=== PATIENT | male | born 1975 | race Caucasian/White ===

== ENCOUNTER 2024-02-08 23:50 | Observation (INO) ==
[2024-02-09] MEDS: LORazepam 1 MG/1 ML SYR ED Inj Use IV STA ×3 (00:15→04:25)
[2024-02-09] MEDS: SODIUM CHLORIDE 0.9% 1,000 ML IV SCH ×2 (00:15→04:24)
[2024-02-09 00:21] LABS: Basophils # (auto) 0.07 K/uL (0.00-0.20); Basophils % (auto) 0.5 %; Eosinophils # (auto) 0.06 K/uL (0.00-0.50); Eosinophils % (auto) 0.4 %; Hematocrit (blood only) 40.7 % (42.0-52.0); Hemoglobin 14.3 g/dl (14.0-18.0); Immature Granulocytes # (auto) 0.05 K/uL (0.01-0.20); Immature Granulocytes % (auto) 0.3 %; Lymphocytes # (auto) 1.17 K/uL (1.20-3.40); Lymphocytes % (auto) 7.7 %; Mean Corpuscular Hemoglobin 36.7 pg (25.0-34.0); Mean Corpuscular Hgb Conc 35.1 g/dL (32.0-36.0); Mean Corpuscular Volume 104.4 fL (80.0-100.0); Mean Platelet Volume 9.3 fL (9.4-12.4); Monocytes # (auto) 1.11 K/uL (0.11-0.59); Monocytes % (auto) 7.3 %; Neutrophils # (auto) 12.74 K/uL (1.40-6.50); Neutrophils % (auto) 83.8 %; Platelet Count 380 K/uL (130-400); RDW Coefficient of Variation 12.3 % (11.5-14.5); RDW Standard Deviation 47.8 fL (36.4-46.3)
[2024-02-09 00:37] LABS: Albumin Globulin Ratio 1.7 (0.9-2); Albumin Level 4.2 gm/dl (3.4-5.0); BUN Creatinine Ratio 14.3 (10-20); Bilirubin,Total 0.7 mg/dl (0.2-1.0); Calcium 8.8 mg/dl (8.6-10.3); Creatinine Clr Calc Pharmacy 80.4 ml/min; Est GFR (African American) 96.8 ml/min; Est GFR (Non-African American) 83.5 ml/min; Globulin 2.5 gm/dl (2.5-4.0); Magnesium 1.9 mg/dl (1.7-2.4); Potassium 4.6 mmol/L (3.5-5.1); Total Protein 6.7 gm/dl (6.0-8.3)
[2024-02-09 00:43] LABS: Troponin I High Sensitivity 7.7 pg/ml (0-20)
[2024-02-09 01:20] LABS: Adenovirus PCR Not Detected (NotDetected); Bordetella parapertussis PCR Not Detected (NotDetected); Bordetella pertussis PCR Not Detected (NotDetected); Chlamydia pneumoniae PCR Not Detected (NotDetected); Coronavirus 229E PCR Not Detected (NotDetected); Coronavirus CoV-2 (COVID19)PCR Not Detected (NotDetected); Coronavirus HKU1 PCR Not Detected (NotDetected); Coronavirus NL63 PCR Not Detected (NotDetected); Coronavirus OC43PCR Not Detected (NotDetected); Human Metapneumovirus PCR Not Detected (NotDetected); Influenza A PCR Not Detected (NotDetected); Influenza B PCR Not Detected (NotDetected); Mycoplasma pneumoniae PCR Not Detected (NotDetected); Parainfluenza Virus 1 PCR Not Detected (NotDetected); Parainfluenza Virus 2 PCR Not Detected (NotDetected); Parainfluenza Virus 3 PCR Not Detected (NotDetected); Parainfluenza Virus 4 PCR Not Detected (NotDetected); Respiratory Syncytial VirusPCR Not Detected (NotDetected); Rhinovirus/Enterovirus PCR Not Detected (NotDetected)
[2024-02-09 01:25] LABS: Acetaminophen < 3 ug/ml (10-30); Salicylate < 3.0 mg/dl (3.0-30)
--- NOTE | 2024-02-09 01:48 | Emergency Department Note ---
History of Present Illness General Chief complaint: Illness Stated complaint: Anxiety, Chills Time Seen by Provider: 02/08/24 23:54 History of Present Illness This is a 48-year-old male presenting to the emergency department for evaluation of shaking and possible seizure. The patient does not live in this area, but is visiting family locally. He states that he was at his parents house and just started shaking. He is not warm or cold. He is worried that he may have a seizure as he did have a febrile seizure as a young child. He has never had another seizure, and does not take any prescription medicine. Patient denies alcohol use. Additional history is provided by the patient's , who states that patient took an unknown amount of Suboxone and Kratom tonight to get high. Home Medications Medication Instructions Recorded Confirmed Type Escitalopram (Lexapro) 10 mg PO DAILY ##30 10/21/08 Rx Lorazepam (Ativan *) 1 mg PO Q6HR PRN ##20 10/21/08 Rx None (Patient States No Home Meds) ##0 10/21/08 History Allergies Allergy/AdvReac Type Severity Reaction Status Date / Time No Known Allergies Allergy NONE Unverified 10/21/08 11:28 Past Med/Surg History Problem List (Updated 02/09/24 @ 06:05 by Roby Baca MD) Altered mental status Tachycardia Tremulousness Opiate or related narcotic overdose Intoxication with opioids Drug overdose, multiple drugs Medical History (Updated 02/09/24 @ 06:05 by Roby Baca MD) Drug abuse Social History Smoking Status: Current every day smoker Tobacco Type: Cigarettes Do You Dip or Chew Tobacco: No; Hx Alcohol Use: No Hx Substance Use: Yes Last Used Substance: Just Prior to Arrival Substance Use Type Other:: Kratum, Suboxone Preferred Language: Yoruba Fund Development Manager Required: No Beliefs That Will Affect Care: None Current Living Situation: Spouse Other Information That Helps Us Care for You: No Feels Safe at Home: Yes Safety Concerns: Feels Safe At This Time Assistive Devices: None Review of Systems A total of 10 systems reviewed and were otherwise negative Physical Exam Vital Signs Vital Signs - 24 hr 02/08/24 23:56 02/08/24 23:57 02/08/24 23:58 Temperature 37.0 C Temperature Source Oral Pulse Rate 113 H 116 H 117 H Pulse Rate [Right] Pulse Rate from SpO2 Sensor Pulse Rhythm [Right] Pulse Strength [Right] Respiratory Rate 20 26 H Respiratory Effort / Characteristics Non-Labored Spontaneous Respiratory Depth Normal Blood Pressure 116/91 116/91 Blood Pressure [Right Arm] Blood Pressure Mean 98 99 Blood Pressure Mean [Right Arm] Blood Pressure Position Lying Blood Pressure Position [Right Arm] Pulse Oximetry 97 96 Oxygen Delivery Method Room Air Room Air Sepsis Recent Fever Within 48 Hours Yes Sepsis New/Unexplained Change in Mental Status N/A Sepsis Action Taken by Nursing Physician Notified 02/09/24 00:01 02/09/24 00:30 02/09/24 01:00 Temperature Temperature Source Pulse Rate 118 H 112 H 116 H Pulse Rate [Right] Pulse Rate from SpO2 Sensor Pulse Rhythm [Right] Pulse Strength [Right] Respiratory Rate 20 20 19 Respiratory Effort / Characteristics Respiratory Depth Blood Pressure 110/79 105/77 Blood Pressure [Right Arm] Blood Pressure Mean 89 86 Blood Pressure Mean [Right Arm] Blood Pressure Position Blood Pressure Position [Right Arm] Pulse Oximetry 96 96 97 Oxygen Delivery Method Room Air Room Air Room Air Sepsis Recent Fever Within 48 Hours Sepsis New/Unexplained Change in Mental Status Sepsis Action Taken by Nursing 02/09/24 01:00 02/09/24 01:30 02/09/24 02:42 Temperature Temperature Source Pulse Rate 118 H 120 H 114 H Pulse Rate [Right] Pulse Rate from SpO2 Sensor 119 H Pulse Rhythm [Right] Pulse Strength [Right] Respiratory Rate 18 18 17 Respiratory Effort / Characteristics Respiratory Depth Blood Pressure 105/77 118/76 114/63 Blood Pressure [Right Arm] Blood Pressure Mean 87 90 80 Blood Pressure Mean [Right Arm] Blood Pressure Position Blood Pressure Position [Right Arm] Pulse Oximetry 96 97 Oxygen Delivery Method Room Air Room Air Sepsis Recent Fever Within 48 Hours Sepsis New/Unexplained Change in Mental Status Sepsis Action Taken by Nursing 02/09/24 03:00 02/09/24 04:07 02/09/24 04:08 Temperature Temperature Source Pulse Rate 110 H 120 H Pulse Rate [Right] 120 H Pulse Rate from SpO2 Sensor Pulse Rhythm [Right] Regular Pulse Strength [Right] Normal Respiratory Rate 18 30 H Respiratory Effort / Characteristics Non-Labored Spontaneous Respiratory Depth Normal Blood Pressure 115/67 Blood Pressure [Right Arm] 115/91 Blood Pressure Mean 83 Blood Pressure Mean [Right Arm] 99 Blood Pressure Position Blood Pressure Position [Right Arm] Lying Pulse Oximetry 93 97 Oxygen Delivery Method Room Air Room Air Sepsis Recent Fever Within 48 Hours Sepsis New/Unexplained Change in Mental Status Sepsis Action Taken by Nursing VITALS: Vitals are noted on the nurse's note and reviewed by myself. Vital signs stable. GENERAL: White male who is very tremulous on presentation. He answers questions appropriately. He seems to have involuntary movement of the arms and legs HEAD: Normocephalic atraumatic. tent. NECK: Supple without nuchal rigidity. No lymphadenopathy. No thyromegaly. Cervical spine is nontender. HEART: Regular rate and rhythm without murmurs gallops or rubs. LUNGS: Clear to auscultation bilaterally without wheezes, rales or rhonchi. No retractions or accessory muscle use. ABDOMEN: Positive normal bowel sounds x 4. Soft, nontender, without masses or organomegaly. No guarding or rebound tenderness. MUSCULOSKELETAL: No muscle atrophy, erythema, or edema noted. Full range of motion in all extremities. Course Administered Medications Lactated Ringer's (Lr) 1,000 mls @ 125 mls/hr IV .Q8H LILIANA Stop: 02/09/24 21:23 Last Admin: 02/09/24 05:50 Dose: 125 mls/hr Documented By: YASSINE Discontinued Medications Sodium Chloride (Nss) 1,000 mls @ 999 mls/hr IV .Q1H1M LILIANA Stop: 02/09/24 01:15 Last Infusion: 02/09/24 01:26 Dose: Infused Documented By: Admin: 02/09/24 00:15 Dose: 999 mls/hr Documented By: JONAS Sodium Chloride (Nss) 1,000 mls @ 999 mls/hr IV .Q1H1M LILIANA Stop: 02/09/24 05:30 Last Infusion: 02/09/24 05:30 Dose: Infused Documented By: Admin: 02/09/24 04:24 Dose: 999 mls/hr Documented By: MICHAEL Lorazepam 3 mg/ Syringe 3 mls @ 2 mls/min IV ONCE PRN; Protocol PRN Reason: EtOH Withdrawal AWSS Score 10+ Last Admin: 02/09/24 06:10 Dose: 2 mls/min Documented By: YASSINE Lorazepam (Lorazepam 1 Mg/1 Ml Syr Ed Inj Use) 1 mg IV ONE STA Stop: 02/09/24 00:02 Last Admin: 02/09/24 00:15 Dose: 1 mg Documented By: JNOAS Lorazepam (Lorazepam 1 Mg/1 Ml Syr Ed Inj Use) 2 mg IV ONE STA Stop: 02/09/24 02:43 Last Admin: 02/09/24 02:54 Dose: 2 mg Documented By: JONAS Lorazepam (Lorazepam 1 Mg/1 Ml Syr Ed Inj Use) 2 mg IV ONE STA Stop: 02/09/24 04:19 Last Admin: 02/09/24 04:25 Dose: 2 mg Documented By: MICHAEL Medical Decision Making Differential Diagnosis Differential diagnosis: Etiologies such as seizure, drug abuse, alcohol intoxication, toxicological, infection, hypoglycemia, electrolyte abnormalities, cardiac sources, intracerebral event, neurologic, as well as others were entertained. Laboratory Data 02/09/24 00:03 02/09/24 00:03 Lab Results 02/09/24 Range/Units 00:03 WBC 15.20 H (4.8-10.8) K/ul RBC 3.90 L (4.70-6.10) M/uL Hgb 14.3 (14.0-18.0) g/dl Hct 40.7 L (42.0-52.0) % MCV 104.4 H (80.0-100.0) fL MCH 36.7 H (25.0-34.0) pg MCHC 35.1 (32.0-36.0) g/dL RDW Std Deviation 47.8 H (36.4-46.3) fL RDW Coeff of Ziggy 12.3 (11.5-14.5) % Plt Count 380 (130-400) K/uL MPV 9.3 L (9.4-12.4) fL Immature Gran % (Auto) 0.3 % Neut % (Auto) 83.8 % Lymph % (Auto) 7.7 % [place] % (Auto) 7.3 % Eos % (Auto) 0.4 % Baso % (Auto) 0.5 % Neut # (Auto) 12.74 H (1.40-6.50) K/uL Lymph # (Auto) 1.17 L (1.20-3.40) K/uL [place] # (Auto) 1.11 H (0.11-0.59) K/uL Eos # (Auto) 0.06 (0.00-0.50) K/uL Baso # (Auto) 0.07 (0.00-0.20) K/uL Immature Gran # (Auto) 0.05 (0.01-0.20) K/uL Sodium 136 (136-145) mmol/L Potassium 4.6 (3.5-5.1) mmol/L Chloride 103 (98-107) mmol/L Carbon Dioxide 22 (21-32) mmol/L Anion Gap 11 (3-11) BUN 15 (6-23) mg/dl Creatinine 1.05 (0.6-1.4) mg/dl Est Cr Clr Drug Dosing 80.4 ml/min Est GFR ( Amer) 96.8 ml/min Est GFR (Non-Af Amer) 83.5 ml/min BUN/Creatinine Ratio 14.3 (10-20) Glucose 96 (70-99(Fasting)) mg/dl Calcium 8.8 (8.6-10.3) mg/dl Magnesium 1.9 (1.7-2.4) mg/dl Total Bilirubin 0.7 (0.2-1.0) mg/dl AST 22 (13-39) U/L ALT 13 (7-52) U/L Alkaline Phosphatase 100 (34-104) U/L Total Creatine Kinase 113 (30-223) U/L Troponin I High Sens 7.7 (0-20) pg/ml Total Protein 6.7 (6.0-8.3) gm/dl Albumin 4.2 (3.4-5.0) gm/dl Globulin 2.5 (2.5-4.0) gm/dl Albumin/Globulin Ratio 1.7 (0.9-2) Lipase 15 (11-82) U/L Salicylates < 3.0 L (3.0-30) mg/dl Acetaminophen < 3 L (10-30) ug/ml Ethyl Alcohol mg/dL < 10.0 (<10.0) mg/dl Adenovirus (PCR) Not Detected (NotDetected) B. pertussis DNA (PCR) Not Detected (NotDetected) B.parapertussis DNA PCR Not Detected (NotDetected) Lyme Disease Screen Negative (Negative) C. pneumoniae DNA (PCR) Not Detected (NotDetected) Coronavirus OC43 (PCR) Not Detected (NotDetected) Coronavirus HKU1 (PCR) Not Detected (NotDetected) Coronavirus 229E (PCR) Not Detected (NotDetected) SARS-CoV-2 (PCR) Not Detected (NotDetected) Coronavirus NL63 (PCR) Not Detected (NotDetected) Human Metapneumovir PCR Not Detected (NotDetected) Influenza Type A (PCR) Not Detected (NotDetected) Influenza Type B (PCR) Not Detected (NotDetected) M. pneumoniae (PCR) Not Detected (NotDetected) Parainfluenza 1 (PCR) Not Detected (NotDetected) Parainfluenza 2 (PCR) Not Detected (NotDetected) Parainfluenza 3 (PCR) Not Detected (NotDetected) Parainfluenza 4 (PCR) Not Detected (NotDetected) RSV (PCR) Not Detected (NotDetected) Entero/Rhino (PCR) Not Detected (NotDetected) MDM Narrative Physical exam and history were performed. Nursing notes, EMR, and Medication List were personally reviewed. No social concerns were identified as barriers to patients care. Patient appears to have shakiness bringing him to the ER. He arrives via EMS. IV access was established and labs were obtained. Additional history provided by family. I did reach out to [facility] poison control who recommended monitoring, IV fluids, and IV Ativan. These were provided. Patient's blood work is as above and was reviewed. He does have an elevated white count of 15,000. He does not have significant anemia or gross electrolyte imbalance. Lipase and transaminases not diagnostic. Alcohol, Tylenol, and salicylates are negative. Bio fire and Lyme are negative. Patient was reevaluated multiple times over the course of his stay. He continues to be tachycardic and tremulous. He was given additional doses of Ativan and additional fluids. Patient continues to be symptomatic despite fairly normal labs otherwise. Overall the patient does not appear well for discharge home. Escalation of care is felt to be necessary. Case was discussed with the on-call hospitalist team who agreed to evaluate the patient here in the ER. Please see their dictation for further patient course, plan, disposition. The chart was completed utilizing [employer] Voice Recognition Software. Grammatical errors, random word insertions, pronoun errors, and incomplete sentences are an occasional consequence of this system due to software limitations, ambient noise, and hardware issues. Any formal questions or concerns about the content, text, or information contained within the body of this dictation should be directly addressed to the provider for clarification. . Impression & Plan Altered mental status, Substance abuse Discharge Plan Visit Data Chief Complaint: Illness Stated Complaint: Anxiety, Chills ED Provider: Mirian Lawrence ED Midlevel Provider: Adama Fajardo Discharge Problem: Altered mental status, Substance abuse Discharge Instructions Interventions: ED Discharge Assessment Last Done: 02/09/24 05:24
[2024-02-09] MEDS ORDERED: NALOXONE HCL 0.4 MG/1 ML VIAL/CARP IV PRN (05:24)
[2024-02-09] MEDS ORDERED: Ativan IV Alcohol Withdrawal--Active Protocol IV PRN (05:35)
[2024-02-09] MEDS: LACTATED RINGER'S 1,000 ML IV SCH (05:50)
[2024-02-09] MEDS: LORazepam 3 MG in SYRINGE 1.5 ML IV PRN (06:10)
--- NOTE | 2024-02-09 06:18 | History & Physical Report ---
Date of Service February 09, 2024 Assessment & Plan (1) Opiate or related narcotic overdose: Plan: 48 M with history of opiate use, who presented with shaking and altered mental status. Admitted for further evaluation, withdrawal management from apparent Suboxone, kratom toxicity/overdose. Suboxone Toxicity/Altered Mental Status -Afebrile, tachypneic, tachycardic. Breathing well on room air. -WBC 15.2, metabolic panel within normal limits. -S/p IV lorazepam x 5 mg, 1 L NS bolus x 2 in the ED. * Admit to observation (PCU). Seizure precautions * Symptomatic management with IV Ativan, per AWSS protocol * As needed naloxone for respiratory depression * Maintenance IVF: LR@125 mL/h x 2L * UDS report, UA pending * Trend a.m. labs Code: Full code Dispo: PCU FEN/GI: NPO. LR @maintenance rate DVT Prophylaxis: PT/OT: No Consults: None Case Management: No (2) Drug abuse: (3) Drug overdose, multiple drugs: (4) Intoxication with opioids: (5) Altered mental status: (6) Tremulousness: (7) Tachycardia: Admission and Anticipated Discharge Date Admission Date: February 09, 2024 History of Present Illness Primary Care Provider: NO PCP Jose De Jesus is a 48-year-old man with no significant past medical history, who presented to the emergency room for evaluation of shaking and concern for seizure. Per ER note, patient in town visiting his parents and suddenly began shaking in the evening. Per ER note, he denies alcohol use. Patient's also reported that the patient had taken unknown amount of Suboxone and kratom this evening prior to symptom onset and attempt to get high. On arrival, patient was notably tachycardic to the 110s, and tachypneic but saturating well on room air. Labs were notable for WBC-15.2, MCV-104.4 (normal Hgb), normal electrolytes and negative salicylate and acetaminophen serum levels. Respiratory bio fire was also negative. He received a total of 5 mg of IV lorazepam and 1 L NS boluses x 2. Hospitalist service was then consulted for admission. On admission, patient was awake but disoriented and agitated he did not respond to any questions. Patient's , Fabian, who was at bedside, corroborated ER HPI. He added that the patient's symptoms began at approximately 9:45 PM with shaking to the point that the patient was unable to sit down though the patient was initially oriented and responsive. However, shaking began to worsen after about 30 minutes and he soon became confused, so his spouse brought him in. also corroborates ER HPI regarding kratom, Suboxone use he was unaware of how much he used, and the patient would only tell him that he had "taken a lot of it," referring to the kratom. Allergies Allergy/AdvReac Type Severity Reaction Status Date / Time NSAIDS (Non-Steroidal Allergy Hives Unverified 02/09/24 09:53 Anti-Inflamma Home Medications Medication Instructions Recorded Confirmed Type No Known Home Medications 02/09/24 02/09/24 History Past Med/Surg History Problem List (Updated 02/09/24 @ 06:05 by Roby Baca MD) Altered mental status Tachycardia Tremulousness Opiate or related narcotic overdose Intoxication with opioids Drug overdose, multiple drugs Medical History (Updated 02/09/24 @ 06:05 by Roby Baca MD) Drug abuse Social History Smoking Status: Current every day smoker Tobacco Type: Cigarettes Do You Dip or Chew Tobacco: No; Hx Alcohol Use: No Hx Substance Use: Yes Last Used Substance: Just Prior to Arrival Substance Use Type Other:: Kratum, Suboxone Preferred Language: Polish Seismic Prospecting Observer Required: No Beliefs That Will Affect Care: None Current Living Situation: Spouse Other Information That Helps Us Care for You: No Feels Safe at Home: Yes Safety Concerns: Feels Safe At This Time Assistive Devices: None Review of Systems Review of Systems: All systems reviewed & are unremarkable except as noted in HPI & below Physical Exam Physical Exam: General: Disoriented, tremulous man in mild distress HEENT: Pupils equal but only mildly reactive to light. Ocular discharge noted in the left eye. Unable to examine oropharynx. Respiratory: Tachypneic. Unable to auscultate due to agitation Cardiovascular: Tachycardic. Regular rhythm. No murmurs, gallops, or rubs. Neuro: Awake, tremulous and disoriented. Not oriented to self. Agitated but re-directable. Results & Data Results & Data Vital Signs (Past 12 Hours) Vital Signs Temp Pulse Pulse Resp BP BP Pulse Ox 02/09/24 05:04 121 H 30 H 114/87 97 02/09/24 04:53 36.5 C 122 H 30 H 120/64 97 02/09/24 04:08 120 H 30 H 115/91 97 02/09/24 04:07 120 H 02/09/24 03:00 110 H 18 115/67 93 02/09/24 02:42 114 H 17 114/63 02/09/24 01:30 120 H 18 118/76 97 02/09/24 01:00 118 H 18 105/77 96 02/09/24 01:00 116 H 19 105/77 97 02/09/24 00:30 112 H 20 110/79 96 02/09/24 00:01 118 H 20 96 02/08/24 23:58 37.0 C 117 H 26 H 116/91 96 02/08/24 23:57 116 H 20 116/91 97 02/08/24 23:56 113 H O2 Del Method 02/09/24 05:04 Room Air 02/09/24 04:53 Room Air 02/09/24 04:08 Room Air 02/09/24 04:07 02/09/24 03:00 Room Air 02/09/24 02:42 02/09/24 01:30 Room Air 02/09/24 01:00 Room Air 02/09/24 01:00 Room Air 02/09/24 00:30 Room Air 02/09/24 00:01 Room Air 02/08/24 23:58 Room Air 02/08/24 23:57 Room Air 02/08/24 23:56 Supervising Physician Co-Signing Physician Notes Attending addendum: I have physically seen this patient, have supervised the medical residents activities, and agree with the H&P unless as otherwise noted. Assessment and Plan: Polysubstance abuse/Suboxone overdose/[place] use- Tachypneic and tachycardic with significant anxiety- Has received lorazepam 5 mg IV from the ED with some improvement in symptoms Status post 1 L normal saline x 2 in the ED Admit to telemetry Seizure precautions AWSS protocol with IV Ativan For urine drug screen pending Follow serial CBC with differential, chemistry and magnesium levels Counseling regarding drug abuse Resident Activity Tracking Resident Involvement: Resident Care Provided Care Provided: Adult Hospital Medicine
[2024-02-09 07:19] LABS: Basophils # (auto) 0.05 K/uL (0.00-0.20); Basophils % (auto) 0.4 %; Eosinophils # (auto) 0.02 K/uL (0.00-0.50); Eosinophils % (auto) 0.2 %; Hematocrit (blood only) 36.5 % (42.0-52.0); Hemoglobin 12.3 g/dl (14.0-18.0); Immature Granulocytes # (auto) 0.05 K/uL (0.01-0.20); Immature Granulocytes % (auto) 0.4 %; Lymphocytes # (auto) 0.94 K/uL (1.20-3.40); Lymphocytes % (auto) 7.1 %; Mean Corpuscular Hemoglobin 36.2 pg (25.0-34.0); Mean Corpuscular Hgb Conc 33.7 g/dL (32.0-36.0); Mean Corpuscular Volume 107.4 fL (80.0-100.0); Mean Platelet Volume 9.3 fL (9.4-12.4); Monocytes # (auto) 1.06 K/uL (0.11-0.59); Neutrophils # (auto) 11.13 K/uL (1.40-6.50); Neutrophils % (auto) 83.9 %; Platelet Count 323 K/uL (130-400); RDW Coefficient of Variation 12.5 % (11.5-14.5); RDW Standard Deviation 49.4 fL (36.4-46.3); White Blood Count 13.25 K/ul (4.8-10.8)
[2024-02-09 07:35] LABS: BUN Creatinine Ratio 21.6 (10-20); Calcium 8.2 mg/dl (8.6-10.3); Est GFR (African American) 117.7 ml/min; Est GFR (Non-African American) 101.6 ml/min; Potassium 4.5 mmol/L (3.5-5.1)
--- NOTE | 2024-02-09 07:53 | Hospitalist Progress Note ---
Date of Service February 09, 2024 Assessment & Plan (1) Opiate or related narcotic overdose: Plan: 1. [place] Toxicity/Altered Mental Status Pt is tachypneic, tachycardic, agitated and disorientated. Fever started this morning, highest 38.4 C. Breathing well on room air. WBC reduced to 13.5, continues metabolic panel within normal limits. Kratom toxicity likely to be cause of the majority of his current symptoms. - Given IV lorazepam 2 mg and 3 mg, continue AWSS protocol - LR increased 175 mls. - Continue seizure precautions - Naloxone PRN for respiratory depression - Tylenol IV 1000mg given for fever - Obtained urine drug screen - Ordered CRP, Procalcitonin, and blood cultures - Continue to monitor pt's symptoms with anticipated in improvement in the last 8-10 hours. - Plan to widen differential if he continues with disorientation, tachycardia and fevers Code: Full code Dispo: PCU FEN/GI: NPO. LR @maintenance rate DVT Prophylaxis: Monitor pt status 02/09 for increased mobility PT/OT: No Consults: None Case Management: No (2) Drug abuse: (3) Drug overdose, multiple drugs: (4) Intoxication with opioids: (5) Altered mental status: (6) Tremulousness: (7) Tachycardia: Admission and Anticipated Discharge Date Admission Date: February 09, 2024 Supervising Physician Co-Signing Physician Notes I personally examined the patient and verified all munson points of history and exam, discussed case, and agree with decision making with Dr Brown More awake whenever I see him. While it takes him a little while to express [facility], he is aware he is in the hospital and [facility] and is able to name his friends and family that are at the bedside. His clarifies that he was not taking Suboxone, and only is aware of him having taken kratomhe notes that this morning he was asking if Suboxone could have been a possibility. Family also asks about his dry skin and weight loss. Patient apparently has been under a good deal of stress, wonders if that combined with intentional weight loss is maybe the weight loss. Notes that he has a good PCP back home that he sees about every 3 months. Vitals noted, in general he is awake alert now oriented x 3 although it takes him a while to truly name place, appears restless with some constant movement but no respiratory or pain distress. Mucous membranes are slightly dry. He shows no focal neurodeficits. He is restless in the bed with constant low-grade movement and occasional twitching. Kratom overdosesupportive care. Fortunately appears to be improvingmentation improving. Continue supportive care. Dehydrationincreased IV fluids. Weight loss/dry skinoverall for outpatient follow-up. Otherwise as above Subjective Pt is a 48 yo male with Hx of opioid substance abuse who presented to ED with shaking, hallucinations, and confusion after taking unknown amount of kratom. Currently, pt is unable to answer questions or provide history. Pt's provided recent history of pt reporting he had taken "a lot or [place]". Per , pt started getting shaky at 930pm on 02/07 and progressed to a "seizure". When they arrived at ED, pt was still able to converse and was coherent. But, he has progressively gotten worse with tremors, hallucinations and disorientation. Physical Exam Physical Exam: General: Disoriented, tremulous man in mild distress, diaphoretic HEENT: Pupils equal but only mildly reactive to light. Unable to examine oropharynx. Respiratory: Tachypneic. Unable to auscultate due to agitation Cardiovascular: Tachycardic. Regular rhythm. No murmurs, gallops, or rubs. No lower extremity edema. Neuro: Transitions between awake and asleep. Tremulous and disoriented. Not oriented to self. Agitated but re-directable. Results & Data Results & Data Vital Signs (Past 12 Hours) Vital Signs Temp Pulse Pulse Resp BP BP Pulse Ox 02/09/24 07:09 121 H 22 132/97 93 02/09/24 06:58 119 H 02/09/24 05:35 37.0 C 118 H 26 H 96/65 L 96 02/09/24 05:04 121 H 30 H 114/87 97 02/09/24 04:53 36.5 C 122 H 30 H 120/64 97 02/09/24 04:08 120 H 30 H 115/91 97 02/09/24 04:07 120 H 02/09/24 03:00 110 H 18 115/67 93 02/09/24 02:42 114 H 17 114/63 02/09/24 01:30 120 H 18 118/76 97 02/09/24 01:00 118 H 18 105/77 96 02/09/24 01:00 116 H 19 105/77 97 02/09/24 00:30 112 H 20 110/79 96 02/09/24 00:01 118 H 20 96 02/08/24 23:58 37.0 C 117 H 26 H 116/91 96 02/08/24 23:57 116 H 20 116/91 97 02/08/24 23:56 113 H O2 Del Method 02/09/24 07:09 Room Air 02/09/24 06:58 02/09/24 05:35 Room Air 02/09/24 05:04 Room Air 02/09/24 04:53 Room Air 02/09/24 04:08 Room Air 02/09/24 04:07 02/09/24 03:00 Room Air 02/09/24 02:42 02/09/24 01:30 Room Air 02/09/24 01:00 Room Air 02/09/24 01:00 Room Air 02/09/24 00:30 Room Air 02/09/24 00:01 Room Air 02/08/24 23:58 Room Air 02/08/24 23:57 Room Air 02/08/24 23:56 Laboratory Results 02/09/24 02/09/24 02/09/24 Range/Units 12:40 12:18 09:29 WBC (4.8-10.8) K/ul RBC (4.70-6.10) M/uL Hgb (14.0-18.0) g/dl Hct (42.0-52.0) % MCV (80.0-100.0) fL MCH (25.0-34.0) pg MCHC (32.0-36.0) g/dL RDW Std Deviation (36.4-46.3) fL RDW Coeff of Ziggy (11.5-14.5) % Plt Count (130-400) K/uL MPV (9.4-12.4) fL Immature Gran % (Auto) % Neut % (Auto) % Lymph % (Auto) % [place] % (Auto) % Eos % (Auto) % Baso % (Auto) % Neut # (Auto) (1.40-6.50) K/uL Lymph # (Auto) (1.20-3.40) K/uL [place] # (Auto) (0.11-0.59) K/uL Eos # (Auto) (0.00-0.50) K/uL Baso # (Auto) (0.00-0.20) K/uL Immature Gran # (Auto) (0.01-0.20) K/uL Sodium (136-145) mmol/L Potassium (3.5-5.1) mmol/L Chloride (98-107) mmol/L Carbon Dioxide (21-32) mmol/L Anion Gap (3-11) BUN (6-23) mg/dl Creatinine (0.6-1.4) mg/dl Est Cr Clr Drug Dosing ml/min Est GFR ( Amer) ml/min Est GFR (Non-Af Amer) ml/min BUN/Creatinine Ratio (10-20) Glucose (70-99(Fasting)) mg/dl Calcium (8.6-10.3) mg/dl Magnesium (1.7-2.4) mg/dl Total Bilirubin (0.2-1.0) mg/dl AST (13-39) U/L ALT (7-52) U/L Alkaline Phosphatase (34-104) U/L Total Creatine Kinase (30-223) U/L Troponin I High Sens (0-20) pg/ml C-Reactive Protein 1.37 H (0-0.5) mg/dl Total Protein (6.0-8.3) gm/dl Albumin (3.4-5.0) gm/dl Globulin (2.5-4.0) gm/dl Albumin/Globulin Ratio (0.9-2) Lipase (11-82) U/L Procalcitonin < 0.02 (0-0.5) ng/ml Urine Color Dark Yellow Urine Appearance Clear (Clear) Urine pH 5.5 (4.5-7.5) Ur Specific [place] 1.032 H (1.000-1.030) Urine Protein Negative (Negative) Urine Glucose (UA) Negative (Negative) Urine Ketones Trace H (Negative) Urine Blood Negative (Negative) Urine Nitrite Negative (Negative) Urine Bilirubin 1+ H (Negative) Urine Urobilinogen Negative (Negative) Ur Leukocyte Esterase Trace H (Negative) Urine WBC (Auto) 0-5 (0-5) /hpf Urine RBC (Auto) 0-2 (0-2) /hpf U Hyaline Cast (Auto) 3-5 H (0-2) /lpf U Epithel Cells (Auto) 0-2 (0-2) /hpf Urine Bacteria (Auto) None Seen (None Seen) Salicylates (3.0-30) mg/dl Urine Opiates Screen Neg Cancelled Ur Methadone, Qual Neg Cancelled Fentanyl Comments Pending Drug Monitor Fentanyl Pending Fentanyl Confirmation Pending Drug Monitor Norfentanyl Pending Urine Fentanyl Screen Cancelled Ur Norfentanyl Confirm Pending Acetaminophen (10-30) ug/ml Urine Barbiturates Neg Cancelled Ur Phencyclidine (PCP) Neg Cancelled U Amphetamin/Meth Scrn Neg Cancelled Urine MDEA Pending MDMA (Ecstasy) Screen Pos H Cancelled MDMA Pending Urine MDMA Pending U OH-Alprazolam Confrm Pending U Benzodiazepines Scrn Pos H Cancelled 7-Amino Clonazepam Pending Ur Nordiazepam Confirm Pending U OH-ethylflurazepam Pending U Lorazepam Cnf GC/MS Pending U Oxazepam Confm GC/MS Pending Ur Temazepam Confirm Pending U OH-Triazolam Confirm Pending U OH-Midazolam Confirm Pending Ur Cocaine Metabolite Neg Cancelled U Marijuana (THC) Screen Neg Cancelled Drug Screen Comment Pending Ethyl Alcohol mg/dL (<10.0) mg/dl Toxicology Comment Pending Drug Monitor Historic Res Pending Adenovirus (PCR) (NotDetected) B. pertussis DNA (PCR) (NotDetected) B.parapertussis DNA PCR (NotDetected) Lyme Disease Screen (Negative) C. pneumoniae DNA (PCR) (NotDetected) Coronavirus OC43 (PCR) (NotDetected) Coronavirus HKU1 (PCR) (NotDetected) Coronavirus 229E (PCR) (NotDetected) SARS-CoV-2 (PCR) (NotDetected) Coronavirus NL63 (PCR) (NotDetected) Human Metapneumovir PCR (NotDetected) Influenza Type A (PCR) (NotDetected) Influenza Type B (PCR) (NotDetected) M. pneumoniae (PCR) (NotDetected) Parainfluenza 1 (PCR) (NotDetected) Parainfluenza 2 (PCR) (NotDetected) Parainfluenza 3 (PCR) (NotDetected) Parainfluenza 4 (PCR) (NotDetected) RSV (PCR) (NotDetected) Entero/Rhino (PCR) (NotDetected) 02/09/24 02/09/24 Range/Units 06:57 00:03 WBC 13.25 H 15.20 H (4.8-10.8) K/ul RBC 3.40 L 3.90 L (4.70-6.10) M/uL Hgb 12.3 L 14.3 (14.0-18.0) g/dl Hct 36.5 L 40.7 L (42.0-52.0) % MCV 107.4 H 104.4 H (80.0-100.0) fL MCH 36.2 H 36.7 H (25.0-34.0) pg MCHC 33.7 35.1 (32.0-36.0) g/dL RDW Std Deviation 49.4 H 47.8 H (36.4-46.3) fL RDW Coeff of Ziggy 12.5 12.3 (11.5-14.5) % Plt Count 323 380 (130-400) K/uL MPV 9.3 L 9.3 L (9.4-12.4) fL Immature Gran % (Auto) 0.4 0.3 % Neut % (Auto) 83.9 83.8 % Lymph % (Auto) 7.1 7.7 % [place] % (Auto) 8.0 7.3 % Eos % (Auto) 0.2 0.4 % Baso % (Auto) 0.4 0.5 % Neut # (Auto) 11.13 H 12.74 H (1.40-6.50) K/uL Lymph # (Auto) 0.94 L 1.17 L (1.20-3.40) K/uL [place] # (Auto) 1.06 H 1.11 H (0.11-0.59) K/uL Eos # (Auto) 0.02 0.06 (0.00-0.50) K/uL Baso # (Auto) 0.05 0.07 (0.00-0.20) K/uL Immature Gran # (Auto) 0.05 0.05 (0.01-0.20) K/uL Sodium 142 136 (136-145) mmol/L Potassium 4.5 4.6 (3.5-5.1) mmol/L Chloride 112 H 103 (98-107) mmol/L Carbon Dioxide 21 22 (21-32) mmol/L Anion Gap 9 11 (3-11) BUN 19 15 (6-23) mg/dl Creatinine 0.88 1.05 (0.6-1.4) mg/dl Est Cr Clr Drug Dosing 96.0 80.4 ml/min Est GFR ( Amer) 117.7 96.8 ml/min Est GFR (Non-Af Amer) 101.6 83.5 ml/min BUN/Creatinine Ratio 21.6 H 14.3 (10-20) Glucose 90 96 (70-99(Fasting)) mg/dl Calcium 8.2 L 8.8 (8.6-10.3) mg/dl Magnesium 1.9 (1.7-2.4) mg/dl Total Bilirubin 0.7 (0.2-1.0) mg/dl AST 22 (13-39) U/L ALT 13 (7-52) U/L Alkaline Phosphatase 100 (34-104) U/L Total Creatine Kinase 113 (30-223) U/L Troponin I High Sens 7.7 (0-20) pg/ml C-Reactive Protein (0-0.5) mg/dl Total Protein 6.7 (6.0-8.3) gm/dl Albumin 4.2 (3.4-5.0) gm/dl Globulin 2.5 (2.5-4.0) gm/dl Albumin/Globulin Ratio 1.7 (0.9-2) Lipase 15 (11-82) U/L Procalcitonin (0-0.5) ng/ml Urine Color Urine Appearance (Clear) Urine pH (4.5-7.5) Ur Specific [place] (1.000-1.030) Urine Protein (Negative) Urine Glucose (UA) (Negative) Urine Ketones (Negative) Urine Blood (Negative) Urine Nitrite (Negative) Urine Bilirubin (Negative) Urine Urobilinogen (Negative) Ur Leukocyte Esterase (Negative) Urine WBC (Auto) (0-5) /hpf Urine RBC (Auto) (0-2) /hpf U Hyaline Cast (Auto) (0-2) /lpf U Epithel Cells (Auto) (0-2) /hpf Urine Bacteria (Auto) (None Seen) Salicylates < 3.0 L (3.0-30) mg/dl Urine Opiates Screen Ur Methadone, Qual Fentanyl Comments Drug Monitor Fentanyl Fentanyl Confirmation Drug Monitor Norfentanyl Urine Fentanyl Screen Ur Norfentanyl Confirm Acetaminophen < 3 L (10-30) ug/ml Urine Barbiturates Ur Phencyclidine (PCP) U Amphetamin/Meth Scrn Urine MDEA MDMA (Ecstasy) Screen MDMA Urine MDMA U OH-Alprazolam Confrm U Benzodiazepines Scrn 7-Amino Clonazepam Ur Nordiazepam Confirm U OH-ethylflurazepam U Lorazepam Cnf GC/MS U Oxazepam Confm GC/MS Ur Temazepam Confirm U OH-Triazolam Confirm U OH-Midazolam Confirm Ur Cocaine Metabolite U Marijuana (THC) Screen Drug Screen Comment Ethyl Alcohol mg/dL < 10.0 (<10.0) mg/dl Toxicology Comment Drug Monitor Historic Res Adenovirus (PCR) Not Detected (NotDetected) B. pertussis DNA (PCR) Not Detected (NotDetected) B.parapertussis DNA PCR Not Detected (NotDetected) Lyme Disease Screen Negative (Negative) C. pneumoniae DNA (PCR) Not Detected (NotDetected) Coronavirus OC43 (PCR) Not Detected (NotDetected) Coronavirus HKU1 (PCR) Not Detected (NotDetected) Coronavirus 229E (PCR) Not Detected (NotDetected) SARS-CoV-2 (PCR) Not Detected (NotDetected) Coronavirus NL63 (PCR) Not Detected (NotDetected) Human Metapneumovir PCR Not Detected (NotDetected) Influenza Type A (PCR) Not Detected (NotDetected) Influenza Type B (PCR) Not Detected (NotDetected) M. pneumoniae (PCR) Not Detected (NotDetected) Parainfluenza 1 (PCR) Not Detected (NotDetected) Parainfluenza 2 (PCR) Not Detected (NotDetected) Parainfluenza 3 (PCR) Not Detected (NotDetected) Parainfluenza 4 (PCR) Not Detected (NotDetected) RSV (PCR) Not Detected (NotDetected) Entero/Rhino (PCR) Not Detected (NotDetected)
[2024-02-09] MEDS: LORazepam 1 MG in SYRINGE 0.5 ML IV ONE (08:30)
[2024-02-09] MEDS: FOLIC ACID 1 MG in SYRINGE 9.8 ML IV SCH (09:09)
[2024-02-09 09:43] LABS: Appearance Urine Clear (Clear); Bacteria Urine Automated None Seen (None Seen); Bilirubin Urine 1+ (Negative); Blood Urine Negative (Negative); Color Urine Dark Yellow; Epithelial Cell Urine Auto 0-2 /hpf (0-2); Glucose Urine UA Negative (Negative); Ketones Urine Trace (Negative); Leukocyte Esterase Urine Trace (Negative); Nitrite Urine Negative (Negative); Protein Urine Negative (Negative); RBC Urine Automated 0-2 /hpf (0-2); Specific Gravity Urine 1.032 (1.000-1.030); Urobilinogen Urine Negative (Negative); WBC Urine Automated 0-5 /hpf (0-5); pH Urine 5.5 (4.5-7.5)
[2024-02-09] MEDS: SODIUM CHLORIDE 0.9% 1,000 ML IV ONE (10:57)
[2024-02-09] MEDS: LORazepam 3 MG in SYRINGE 1.5 ML IV STA (12:56)
[2024-02-09] MEDS: ACETAMINOPHEN 1,000 MG/100 ML VIAL IV STA (13:11)
[2024-02-09 13:20] LABS: Amphetamines+Metham, Urine Neg (Neg); Barbiturates, Urine Neg (Neg); Benzodiazepine, Urine Pos (Neg); Cocaine, Urine Neg (Neg); MDMA (Ecstacy), Urine Pos (Neg); Marijuana, Urine Neg (Neg); Methadone, Urine Neg (Neg); Opiate, Urine Neg (Neg); Phencyclidine, Urine Neg (Neg)
[2024-02-09] MEDS ORDERED: MoRPHine SULFATE 2 MG/ML CARP IV PRN (17:01)
--- NOTE | 2024-02-09 19:20 | Billing Data ---
Date of Service February 09, 2024 Coding Level of Care Code 33689 INT INP/OBS CARE
[2024-02-09] MEDS: NICOTINE 21 MG/24 HR TDSY TD SCH (19:35)
[2024-02-09] MEDS: ACETAMINOPHEN 1,000 MG/100 ML VIAL IV PRN (19:51)
[2024-02-09] MEDS: LORazepam 2 MG in SYRINGE 1 ML IV PRN (20:35)
[2024-02-09] MEDS ORDERED: ONDANSETRON INJ 2 MG/ML 2 ML VIAL IV PRN (22:50)
[2024-02-10] MEDS: LORazepam 1 MG in SYRINGE 0.5 ML IV PRN (05:46)
--- NOTE | 2024-02-10 06:09 | Electrocardiogram Report ---
Test Reason : Blood Pressure : / mmHG Vent. Rate : 114 BPM Atrial Rate : 114 BPM P-R Int : 132 ms QRS Dur : 094 ms QT Int : 352 ms P-R-T Axes : 080 -17 071 degrees QTc Int : 485 ms Sinus tachycardia Possible Left atrial enlargement Incomplete right bundle branch block Septal infarct , age undetermined Nonspecific ST abnormality Abnormal ECG No previous ECGs available Confirmed by Aaron Gaspar ([id number]) on 02/10/2024 6:09:31 AM Referred By: REFERRED SELF Confirmed By:Aaron Gaspar
[2024-02-10 06:30] LABS: Hematocrit (blood only) 31.1 % (42.0-52.0); Hemoglobin 10.6 g/dl (14.0-18.0); Mean Corpuscular Hemoglobin 36.2 pg (25.0-34.0); Mean Corpuscular Hgb Conc 34.1 g/dL (32.0-36.0); Mean Corpuscular Volume 106.1 fL (80.0-100.0); Mean Platelet Volume 9.7 fL (9.4-12.4); Platelet Count 248 K/uL (130-400); RDW Coefficient of Variation 12.4 % (11.5-14.5); RDW Standard Deviation 48.8 fL (36.4-46.3); Red Blood Count 2.93 M/uL (4.70-6.10); White Blood Count 11.83 K/ul (4.8-10.8)
[2024-02-10 06:46] LABS: Albumin Globulin Ratio 1.7 (0.9-2); Albumin Level 3.4 gm/dl (3.4-5.0); BUN Creatinine Ratio 39.4 (10-20); Bilirubin,Total 0.7 mg/dl (0.2-1.0); Calcium 8.1 mg/dl (8.6-10.3); Est GFR (African American) 132.5 ml/min; Est GFR (Non-African American) 114.3 ml/min; Potassium 4.1 mmol/L (3.5-5.1); Total Protein 5.4 gm/dl (6.0-8.3)
[2024-02-10 10:17] LABS: C Reactive Protein 21.46 mg/dl (0-0.5)
[2024-02-10 10:37] LABS: Ferritin 138.4 ng/ml (8-388)
[2024-02-10 10:43] LABS: Folate (Folic Acid),Ser orPlas 19.06 ng/ml (>5.38)
--- NOTE | 2024-02-10 11:12 | Hospitalist Progress Note ---
Date of Service February 10, 2024 Assessment & Plan (1) Opiate or related narcotic overdose: Plan: 1. [place] Toxicity/Altered Mental Status Pt was brought to the ED with hx of polysubstance use with symptoms tachypnea, tachycardia, tremors, agitation and disorientation. Pt became febrile with increased tremors with highest 38.4 C. When more coherent, pt reports he had been using Kratom recently for opioid craving, but had stopped for the last couple days. UDS was negative for stimulants. CRP, Procalcitonin were low and make infection less likely. - Last Ativan was 1 mg early am 02/09 continue AWSS protocol - Continue seizure precautions - Naloxone PRN for respiratory depression - Awaiting results from blood cultures Code: Full code Dispo: DC home with self care FEN/GI: vegan diet, no IVF DVT Prophylaxis: Pt with increased mobility PT/OT: No Consults: None Case Management: No (2) Drug abuse: (3) Drug overdose, multiple drugs: (4) Intoxication with opioids: (5) Altered mental status: (6) Tremulousness: (7) Tachycardia: Admission and Anticipated Discharge Date Admission Date: February 09, 2024 Supervising Physician Co-Signing Physician Notes I personally examined the patient and verified all munson points of history and exam, discussed case, and agree with decision making with Dr Brown awake and alert, coherent and conversive. Notes that stress and anxiety are a major problem. Often seems to lean on substance useand even in discussion of treatment for his stress and anxiety he initially mostly asks about what medications would helpspecifically with thoughts of benzodiazepines. He is, however, quite reasonable whenever we discussed that benzodiazepines tend to be a fairly terrible long-term solution for anxiety management. In regards to his B12 deficiency/anemiahe notes he is vegan, used to take a supplement, and it slipped through the crackshe does not use whippets. His notes that he follows the same diet and requires oral B12 supplementation otherwise he runs low. Vitals noted, in general he is awake alert Oriented x 3 pleasant no distress. HEENT normocephalic atraumatic mucous membranes moist. Breathing unlabored no accessory muscle use good effort. Skin without rashes pallor or icterus. Does still have a pena and ashen appearance. Occasional m yoclonusalthough now less erratic and random than before, and seems to maybe be in line with what he describes he gets from his baseline anxiety. Kratom overdoseimproving nicely. Hopefully stable enough for home tomorrow. Cautioned about use. Stress/anxietyextensive discussion on comprehensive management of anxiety, discussed counseling, discussed self management tools, discussed that medications play a limited role, but discussed that benzodiazepines tend to be counterproductive over anything more than very short use due to physical dependency/withdrawal/withdrawal symptoms feeling like anxiety/make the whole complex worse. Macrocytic [id number] extremely low, iron equivocal but somewhat low (I wonder about his ferritin being a phase reactantgiven that his percent sat is fairly low)he notes it relates to his vegan diet without supplementation. I tend to favor this as the most likely working diagnosis. Supplementation and close follow-up Weight lossworking diagnosis would be related to stress/anxiety/substance useobviously will need ongoing workup/longitudinal follow-up for this to follow for/rule out any other concomitant diagnoses Subjective Pt is a 48 yo male with Hx of opioid substance abuse who presented to ED with shaking, hallucinations, and confusion after taking unknown amount of kratom. Currently, patient is fatigued, but arousable. Pt is cooperative with exam and able to answer questions. He denies chest pain, nausea, chills, or SOB. Physical Exam Physical Exam: General: Oriented x 4, mildly tremulous man without acute distress HEENT: PERRLA. Unable to examine oropharynx. Respiratory: Normal respiratory rate, snoring. Bilateral lungs are clear to auscultation Cardiovascular: Regular rate and rhythm. No murmurs, gallops, or rubs. No lower extremity edema. Neuro: Sleepy, but easily arousable. CN 2-10 within normal limits. Able to move arms and legs independently Results & Data Results & Data Vital Signs (Past 12 Hours) Vital Signs Temp Pulse Pulse Resp BP BP Pulse Ox 02/10/24 11:00 37.4 C 84 20 118/64 94 02/10/24 07:00 37.7 C H 87 20 123/69 95 02/10/24 02:48 36.7 C 87 18 117/65 94 02/10/24 01:03 99 H O2 Del Method 02/10/24 11:00 Room Air 02/10/24 07:00 Room Air 02/10/24 02:48 Room Air 02/10/24 01:03 Laboratory Results 02/10/24 02/10/24 02/09/24 Range/Units 09:41 05:22 12:40 WBC 11.83 H (4.8-10.8) K/ul RBC 2.93 L (4.70-6.10) M/uL Hgb 10.6 L (14.0-18.0) g/dl Hct 31.1 L (42.0-52.0) % MCV 106.1 H (80.0-100.0) fL MCH 36.2 H (25.0-34.0) pg MCHC 34.1 (32.0-36.0) g/dL RDW Std Deviation 48.8 H (36.4-46.3) fL RDW Coeff of Ziggy 12.4 (11.5-14.5) % Plt Count 248 (130-400) K/uL MPV 9.7 (9.4-12.4) fL Sodium 142 (136-145) mmol/L Potassium 4.1 (3.5-5.1) mmol/L Chloride 110 H (98-107) mmol/L Carbon Dioxide 23 (21-32) mmol/L Anion Gap 9 (3-11) BUN 26 H (6-23) mg/dl Creatinine 0.66 (0.6-1.4) mg/dl Est Cr Clr Drug Dosing 128.0 ml/min Est GFR ( Amer) 132.5 ml/min Est GFR (Non-Af Amer) 114.3 ml/min BUN/Creatinine Ratio 39.4 H (10-20) Glucose 76 (70-99(Fasting)) mg/dl Calcium 8.1 L (8.6-10.3) mg/dl Iron 22 L (35-175) mcg/dl TIBC 302 (250-450) mcg/dl Unsaturated IBC 280 (155-355) mcg/dl Transferrin % Sat 7 L (20-50) % Ferritin 138.4 (8-388) ng/ml Total Bilirubin 0.7 (0.2-1.0) mg/dl AST 24 (13-39) U/L ALT 13 (7-52) U/L Alkaline Phosphatase 84 (34-104) U/L C-Reactive Protein 21.46 H 1.37 H (0-0.5) mg/dl Total Protein 5.4 L (6.0-8.3) gm/dl Albumin 3.4 (3.4-5.0) gm/dl Globulin 2.0 L (2.5-4.0) gm/dl Albumin/Globulin Ratio 1.7 (0.9-2) Vitamin B12 117 L (180-914) pg/ml Folate 19.06 (>5.38) ng/ml Procalcitonin < 0.02 (0-0.5) ng/ml Urine Opiates Screen Ur Methadone, Qual Fentanyl Comments Drug Monitor Fentanyl Fentanyl Confirmation Drug Monitor Norfentanyl Urine Fentanyl Screen Ur Norfentanyl Confirm Urine Barbiturates Ur Phencyclidine (PCP) U Amphetamin/Meth Scrn Urine MDEA MDMA (Ecstasy) Screen MDMA Urine MDMA U OH-Alprazolam Confrm U Benzodiazepines Scrn 7-Amino Clonazepam Ur Nordiazepam Confirm U OH-ethylflurazepam U Lorazepam Cnf GC/MS U Oxazepam Confm GC/MS Ur Temazepam Confirm U OH-Triazolam Confirm U OH-Midazolam Confirm Ur Cocaine Metabolite U Marijuana (THC) Screen Drug Screen Comment Toxicology Comment Drug Monitor Historic Res 02/09/24 02/09/24 Range/Units 12:18 09:29 WBC (4.8-10.8) K/ul RBC (4.70-6.10) M/uL Hgb (14.0-18.0) g/dl Hct (42.0-52.0) % MCV (80.0-100.0) fL MCH (25.0-34.0) pg MCHC (32.0-36.0) g/dL RDW Std Deviation (36.4-46.3) fL RDW Coeff of Ziggy (11.5-14.5) % Plt Count (130-400) K/uL MPV (9.4-12.4) fL Sodium (136-145) mmol/L Potassium (3.5-5.1) mmol/L Chloride (98-107) mmol/L Carbon Dioxide (21-32) mmol/L Anion Gap (3-11) BUN (6-23) mg/dl Creatinine (0.6-1.4) mg/dl Est Cr Clr Drug Dosing ml/min Est GFR ( Amer) ml/min Est GFR (Non-Af Amer) ml/min BUN/Creatinine Ratio (10-20) Glucose (70-99(Fasting)) mg/dl Calcium (8.6-10.3) mg/dl Iron (35-175) mcg/dl TIBC (250-450) mcg/dl Unsaturated IBC (155-355) mcg/dl Transferrin % Sat (20-50) % Ferritin (8-388) ng/ml Total Bilirubin (0.2-1.0) mg/dl AST (13-39) U/L ALT (7-52) U/L Alkaline Phosphatase (34-104) U/L C-Reactive Protein (0-0.5) mg/dl Total Protein (6.0-8.3) gm/dl Albumin (3.4-5.0) gm/dl Globulin (2.5-4.0) gm/dl Albumin/Globulin Ratio (0.9-2) Vitamin B12 (180-914) pg/ml Folate (>5.38) ng/ml Procalcitonin (0-0.5) ng/ml Urine Opiates Screen Neg Cancelled Ur Methadone, Qual Neg Cancelled Fentanyl Comments Pending Drug Monitor Fentanyl Pending Fentanyl Confirmation Pending Drug Monitor Norfentanyl Pending Urine Fentanyl Screen Cancelled Ur Norfentanyl Confirm Pending Urine Barbiturates Neg Cancelled Ur Phencyclidine (PCP) Neg Cancelled U Amphetamin/Meth Scrn Neg Cancelled Urine MDEA Pending MDMA (Ecstasy) Screen Pos H Cancelled MDMA Pending Urine MDMA Pending U OH-Alprazolam Confrm Pending U Benzodiazepines Scrn Pos H Cancelled 7-Amino Clonazepam Pending Ur Nordiazepam Confirm Pending U OH-ethylflurazepam Pending U Lorazepam Cnf GC/MS Pending U Oxazepam Confm GC/MS Pending Ur Temazepam Confirm Pending U OH-Triazolam Confirm Pending U OH-Midazolam Confirm Pending Ur Cocaine Metabolite Neg Cancelled U Marijuana (THC) Screen Neg Cancelled Drug Screen Comment Pending Toxicology Comment Pending Drug Monitor Historic Res Pending
[2024-02-10] MEDS: CYANOCOBALAMIN 1000 MCG/ML VIAL IM SCH (18:42)
[2024-02-10] MEDS: LORazepam 1 MG in SYRINGE 0.5 ML IV STA (18:42)
--- NOTE | 2024-02-10 19:22 | Billing Data ---
Date of Service February 10, 2024 Coding Level of Care Code 83589 SUB INP/OBS CARE MIN
[2024-02-10] MEDS: MELATONIN 3 MG TAB PO PRN (20:12)
[2024-02-10] MEDS: SODIUM CHLORIDE 0.65% NA SOLN 45 ML (OCEAN) ONE (21:13)
[2024-02-11 06:37] LABS: Hematocrit (blood only) 31.6 % (42.0-52.0); Hemoglobin 10.8 g/dl (14.0-18.0); Mean Corpuscular Hemoglobin 35.9 pg (25.0-34.0); Mean Corpuscular Hgb Conc 34.2 g/dL (32.0-36.0); Mean Platelet Volume 9.9 fL (9.4-12.4); Platelet Count 218 K/uL (130-400); RDW Coefficient of Variation 11.9 % (11.5-14.5); RDW Standard Deviation 45.7 fL (36.4-46.3); Red Blood Count 3.01 M/uL (4.70-6.10); White Blood Count 9.05 K/ul (4.8-10.8)
[2024-02-11 09:01] LABS: BUN Creatinine Ratio 24.2 (10-20); Est GFR (African American) 132.5 ml/min; Est GFR (Non-African American) 114.3 ml/min; Magnesium 1.8 mg/dl (1.7-2.4); Potassium 3.8 mmol/L (3.5-5.1)
[2024-02-11] MEDS: FERROUS GLUCONATE 324 MG TAB PO SCH (09:20)
[2024-02-11] MEDS: hydrOXYzine HCl 10 MG TAB PO ONE (10:43)
--- NOTE | 2024-02-11 13:26 | Discharge Summary ---
Date of Service February 11, 2024 Admission HPI Per Admitting Provider Jose De Jesus is a 48-year-old man with no significant past medical history, who presented to the emergency room for evaluation of shaking and concern for seizure. Per ER note, patient in town visiting his parents and suddenly began shaking in the evening. Per ER note, he denies alcohol use. Patient's also reported that the patient had taken unknown amount of Suboxone and kratom this evening prior to symptom onset and attempt to get high. On arrival, patient was notably tachycardic to the 110s, and tachypneic but saturating well on room air. Labs were notable for WBC-15.2, MCV-104.4 (normal Hgb), normal electrolytes and negative salicylate and acetaminophen serum levels. Respiratory bio fire was also negative. He received a total of 5 mg of IV lorazepam and 1 L NS boluses x 2. Hospitalist service was then consulted for admission. On admission, patient was awake but disoriented and agitated he did not respond to any questions. Patient's , Fabian, who was at bedside, corroborated ER HPI. He added that the patient's symptoms began at approximately 9:45 PM with shaking to the point that the patient was unable to sit down though the patient was initially oriented and responsive. However, shaking began to worsen after about 30 minutes and he soon became confused, so his spouse brought him in. also corroborates ER HPI regarding kratom, Suboxone use he was unaware of how much he used, and the patient would only tell him that he had "taken a lot of it," referring to the kratom. Admission Exam Per Admitting Provider General: Disoriented, tremulous man in mild distress HEENT: Pupils equal but only mildly reactive to light. Ocular discharge noted in the left eye. Unable to examine oropharynx. Respiratory: Tachypneic. Unable to auscultate due to agitation Cardiovascular: Tachycardic. Regular rhythm. No murmurs, gallops, or rubs. Neuro: Awake, tremulous and disoriented. Not oriented to self. Agitated but re-directable. Principal Diagnosis kratom toxicity Discharge Exam Gen: appears older than stated age, non-toxic appearing HEENT: AT NC MMM Resp: no increased work of breathing CV: clinically well perfused Abd: non-distended MSK: no obvious deformities Skin: no rashes or bruising Neuro: alert and oriented, no longer tremulous, slightly anxious appearing Psych: appropriate mood and affect Discharge Data Allergies Allergy/AdvReac Type Severity Reaction Status Date / Time NSAIDS (Non-Steroidal Allergy Hives Unverified 02/09/24 09:53 Anti-Inflamma Consultations 02/09/24 04:27 ED Decision to Admit Stat Hospital Course (1) Opiate or related narcotic overdose: Encephalopathy | Kratom intoxication | Opioid Withdrawal Acute presentation - tachypnea, tachycardia, tremors, encephalopathy, agitation, hyperthermia. BCx NGTD. Inflammatory markers appear non-infectious. Patient known ingestion of Kratom and ?Suboxone. Reportedly an attempt to "get high". Patient supported during active toxicity phase with benzos, fluids, antipyretics. Likely some aspect of withdrawal as well. Patient may benefit from MAT - ?suboxone vs naltrexone. Would continue to discuss on an outpatient basis. Some improvement on anxiety with hydroxyzine. Given outpatient script. Did arrange f/u with [facility] residency clinic to establish care here in [facility]. Polysubstance use | Mood concerns Patient with history of polysubstance use. Has a history of anxiety as well. Seems to have multiple stressors at present and will be moving here to help care for his father. May benefit from talk therapy vs medication initiation vs a combination. Would recommend psychology and psychiatry referral with the [facility] on psychology. Anemia | B12 deficiency | Iron deficiency Patient with B12 and iron deficiencies. Likely dietary as patient is a vegan and has forgotten to supplement. Recommend supplementation. Can recheck in a few months. (2) Drug abuse: (3) Drug overdose, multiple drugs: (4) Intoxication with opioids: (5) Altered mental status: (6) Tremulousness: (7) Tachycardia: Total Time Total Time Spent Total Time Spent (In Minutes): <30 Discharge Plan Discharge Items Patient Disposition: Home - Self-Care Reason For Visit: ILLNESS Discharge Diagnosis: kratom toxicity Activity: Per Instructions section Non-emergency contact: Primary Care Provider Call non-emergency contact if: your symptoms worsen Follow-up/Referrals: Mariaelena Brown DO [Resident] - (02/19/2024 at 2:45) PCP,NO [Primary Care Provider] - Diet: Regular and Vegan (no animal product) Addtl Attending Provider Instructions: You were seen in the hospital for kratom toxicity. We supported you with fluids and medications. Your symptoms improved and you were stable for discharge home. We prescribed hydroxyzine 10 mg to take as needed for anxiety (up to three times a day) for the next few days. We can discuss next steps at your upcoming PCP appointment. Strongly recommend abstinence from kratom/other unregulated substances. We did find that you had low B12 and iron as well. This is most likely related to your vegan diet. I would recommend restarting iron and B12 supplementation. Would recommend close PCP follow up. We scheduled you for an appointment with Dr. Brown 02/19/2024 at 2:45 PM. This appointment is at the [facility] - [facility] [place] [address] If this time does not work for you call [phone] to reschedule. Thank you for allowing to participate in your care. Feel free to reach out with any questions. Pending Studies at Discharge: No Stand-Alone Forms: My [facility], Smoking Cessation Medications and DC Order Prescriptions: New ferrous gluconate 324 mg (38 mg iron) Tablet 324 mg PO QAM Qty: 30 0RF hydroxyzine HCl 10 mg tablet 10 mg PO TID PRN (Reason: anxiety) Qty: 60 0RF cyanocobalamin (vitamin B-12) 1,000 mcg capsule 1,000 mcg PO DAILY Qty: 60 0RF Discharge Orders: Discharge Order (Routine); Ordered 02/11/24 Ordered By: Katlin Melton Admission Data Admit Date/Time: 02/09/24 05:34 Attending Provider: Gary Romero Admit Provider: Roby Baca Primary Care Provider: PCP,NO Other Providers: Eyad Tim Other Interventions: Discharge Summary Assessment (RN) Last Done: 02/11/24 13:21 Supervising Physician Co-Signing Physician Notes I personally examined the patient and verified all munson points of history and exam, discussed case, and agree with decision making with Dr Melton feels better. Still weak and shaky but feels up to going home. Vitals noted, in general he is awake and alert pleasant no distress. HEENT normocephalic atraumatic mucous membranes moist. Breathing unlabored no accessory muscle use good effort. Kratom overdoseimproving nicely. I think the acute effects of the overdose have passed. It is a little bit hard to discern how much she ángel alonzo has been using this as the story has been a little bit different each day, but I do wonder if some of what we are seeing now is a mild degree of withdrawalbut given that his overall course is improved so muchappears quite safe for home Stress/anxietyextensive discussion on comprehensive management of anxiety, discussed counseling, discussed self management tools, discussed that medica tions play a limited role, outpatient PCP, psychology, psychiatry follow-up Macrocytic [id number] extremely low, iron equivocal but somewhat low (I wonder about his ferritin being a phase reactantgiven that his percent sat is fairly low)he notes it relates to his vegan diet without supplementation. I tend to favor this as the most likely working diagnosis. Supplementation and close follow-up as an outpatient Weight lossworking diagnosis would be related to stress/anxiety/substance useobviously will need ongoing workup/longitudinal follow-up for this to follow for/rule out any other concomitant diagnoses ask him for name and number of his PCP in [place] to try to ensure good coordination, he noted that he and his were moving back to the [place] area for family reasons anyway and he would prefer to have his follow-up hereto be set up with [facility] family medicine. Resident Activity Tracking Resident Involvement: Resident Care Provided Care Provided: Adult Hospital Medicine
--- NOTE | 2024-02-11 16:39 | Billing Data ---
Date of Service February 11, 2024 Coding Level of Care Code 87989 IN/OBS DISCH 30 MIN/LESS
[2024-02-14 21:58] LABS: 7-Aminoclonaz, Confirm NEGATIVE ng/mL (<25); Fentanyl, Urine NEGATIVE ng/mL (<0.5); Hydro-Alp Ur, GC/MS 73 ng/mL (<25); Hydroxyethylflurazepam, Conf NEGATIVE ng/mL (<50); Hydroxymidazolam Ur, GC/MS NEGATIVE ng/mL (<50); Hydroxytriazolam NEGATIVE ng/mL (<50); Lorazepam, Ur GC/MS >2000 ng/mL (<50); MDA negative; MDEA negative; MDMA (Ecstasy) Urine, Confirm negative; Nordiazepam, Confirm NEGATIVE ng/mL (<50); Norfentanyl, Urine NEGATIVE ng/mL (<0.5); Oxazepam Ur, GC/MS NEGATIVE ng/mL (<50); Temazepam, Confirm NEGATIVE ng/mL (<50); medMATCH Fentanyl, Urine DNR; medMATCH Norfentanyl, Urine DNR
== END 2024-02-11 14:31 | disposition home or self-care (01) ==
LOC: ED 23:50 → SUATTDRO 02-09 04:39 → INTOOBSV 02-09 04:39 → EDINP 02-09 04:39 → 2S 02-09 16:07